=== PATIENT | female | born 2000 | race Two or more races ===

== ENCOUNTER 2025-01-10 11:02 | Outpatient (AMB) | payer OTHER, SELFPAY ==
--- NOTE | 2025-01-10 11:11 | AMB.GYNCLNOT ---
Vital Signs 01/10/25 11:12 Height 1.63 m Height Method Measured Weight 103.022 kg Weight Measurement Method Standing Scale BMI 38.9 BP 127/80 Blood Pressure Source Automatic Cuff Blood Pressure Location Right Upper Arm Position Sitting Respiration 17 Pulse 78 Pulse Source Monitor Temp 97.8 F Temp Source Temporal Artery Scan Pulse Oximetry (%) 98 Oxygen Delivery Method Room Air Allergies/Home Meds Allergies & Medications Allergies No Known Allergies Allergy (Verified 01/10/25 11:12) Medication Reconciliation No Known Home Medications 02/24/24 [History Confirmed 01/10/25] Intake Visit Data Collection New Patient or Established: Established Patient (seen at [facility] within 3 years) Reason for Visit:: REF CONSULT NEXPLANON REMOVAL Consent obtained for Telemed Visit: No Seen by Clinical Staff ONLY (RN/MA): No Hearse Driver Required: No Do You Feel Safe at Home: Yes Authorities Contacted: N/A PCP or OBGYN visit in last 3 months: No Hx Now: No Are you currently on any form of Control: Yes Last menstrual period: 01/02/25 Pain Present Currently: No Pain Scale Used: Sanders-Breaux/Numerical Pain scale:: 0 Smoking Status Smoking Status: Never smoker Critical Care Cns history Critical Care Cns History Menstrual regularity: irregular Flow: normal Monthly: Yes How many days does period last: 8 Age at menarche: 7 Menopausal: No Currently sexually active: Yes 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 1. Little interest or pleasure in doing things: not at all 2. Feeling down, depressed, or hopeless: not at all Total score: 0 PHQ-9 3. Trouble falling or staying asleep, or sleeping too much: Not at all 4. Feeling tired or having little energy: Not at all 5. Poor appetite or overeating: Not at all 6. Feeling bad about yourself - or that you are a failure or have let yourself or your family down: Not at all 7. Trouble concentrating on things, such as reading the newspaper or watching television: Not at all 8. Moving or speaking so slowly that other people could have noticed? - Or the opposite - being so fidgety or restless that you have been moving around a lot more than usual: not at all 9. Thoughts that you would be better off or of hurting yourself in some way: Not at all Total score: 0 If you checked off any problems, how difficult have these problems made it for you to do your work, take care of things at home, or get along with other people?: not difficult at all Source: Developed by Drs. Allen Chambers, Sia Salazar, Juan Rogers and colleagues, with an educational chirag from [employer]. Social History Living Situation History Lives With: Family Housing: House Tobacco History Smoking Status: Never smoker Alcohol History Alcohol Intake: Never Domestic Abuse History Do You Feel Safe at Home: Yes History of Present Illness HPI Narrative 24-year-old 0 para 0 for Nexplanon removal consult. Patient had a Nexplanon for 3 years. She has had no problems with the Nexplanon happy with the method but she like to remove it and see how her hormones are just. Patient is undecided as to what she would like to use for control now.'s complains of frequent menses the last few months. Her last period January 02, 2025. She denies dizziness or any signs of anemia. Denies any coexisting medical problems. She had a lap walter 1 year ago. And she has an occasional drink. Denies any IMPORT/EXPORT FREIGHT FORWARDER complaints. Review of Systems Review of Systems Systems Reviewed: All systems reviewed, normal except as documented Exam Narrative Physical exam: nexplanon site intact, palpated nexplanon capsule General Limitations: no limitations General Appearance: alert, in no apparent distress, comfortable, cooperative, healthy appearing, well developed and well groomed Head Head exam: atraumatic, normocephalic and normal inspection Chest Chest inspection: Present normal inspection and symmetric chest wall rise Resp Respiratory exam: Present normal lung sounds bilaterally Card Cardiovascular exam: Present regular rate, normal rhythm and normal heart sounds Psych Psychiatric exam: Present normal affect and normal mood Office Procedures OB Clinic LOC & Office Proc's Nursing/Assessment Patient Status: Established Patient OB Clinic Nursing Assessment: Medication Reconciliation, Update PMH in EMR and Vital Signs OB Clinic Coordination of Care: Complex Care and Chronic Disease 1-5, Education Complex Pt/Fam, Consent,records obtained, informed consent, Education Simp Pt/Fam and 1 Ins Authorization Established Patient Charge Established Patient Point Assignment: 110 Established Patient Point Charge: EP Level 3 (80-115) Assessment & Plan Diagnosis / Problem List (1) Encounter for surveillance of Nexplanon subdermal contraceptive: Status: Acute Plan review nexplanon side effect and method with patient. discuss nexplanon removal. discuss contraception option including nuva ring. rtc for removl procedure Additional Plan Follow Up: 2 Weeks (nexplanon removal)
[2025-01-10 11:12] VITALS: BP 127/80; PULSE 78; RESP 17; TEMP 36.6; O2SAT 98; BMI 38.9
== END 2025-01-10 11:29 | disposition home or self-care (01) ==
LOC: HODSOBC 11:02
PROVIDERS: PCP Physician Assistant; Referring Provider Physician Assistant; Supervising Provider Advanced Practice Midwife; Visit Provider Advanced Practice Midwife
DX: Z30.46 Encounter for surveillance of implantable subdermal contraceptive (principal)
CPT/HCPCS: 99213; G0463

== ENCOUNTER 2025-02-16 14:17 | Outpatient (AMB) | payer OTHER, SELFPAY ==
--- NOTE | 2025-02-16 14:40 | GYNCLNT_ITS ---
Vital Signs 02/16/25 15:00 Height 1.63 m Height Method Stated Weight 55.395 kg Weight Measurement Method Standing Scale BMI 20.8 BP 127/80 Blood Pressure Source Automatic Cuff Blood Pressure Location Left Upper Arm Position Sitting Respiration 18 Pulse 81 Pulse Source Monitor Temp 97.2 F Temp Source Oral Pulse Oximetry (%) 98 Oxygen Delivery Method Room Air Allergies/Home Meds Allergies & Medications Allergies No Known Allergies Allergy (Verified 02/16/25 15:04) Medication Reconciliation etonogestrel 0.12 mg-ethinyl estradiol 0.015 mg/24 hr vaginal ring (NuvaRing) 1 vag ring vaginal .monthly #3 ea 02/16/25 [Rx] Intake Visit Data Collection New Patient or Established: Established Patient (seen at 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 1. Little interest or pleasure in doing things: not at all 2. Feeling down, depressed, or hopeless: not at all Total score: 0 PHQ-9 3. Trouble falling or staying asleep, or sleeping too much: Not at all 4. Feeling tired or having little energy: Not at all 5. Poor appetite or overeating: Not at all 6. Feeling bad about yourself - or that you are a failure or have let yourself or your family down: Not at all 7. Trouble concentrating on things, such as reading the newspaper or watching television: Not at all 8. Moving or speaking so slowly that other people could have noticed? - Or the opposite - being so fidgety or restless that you have been moving around a lot more than usual: not at all 9. Thoughts that you would be better off or of hurting yourself in some way: Not at all Total score: 0 If you checked off any problems, how difficult have these problems made it for you to do your work, take care of things at home, or get along with other people?: not difficult at all Source: Developed by Drs. Allen Chambers, Sia Salazar, Juan Rogers and colleagues, with an educational chirag from [employer]. Depression screen completed yes Social History Living Situation History Marital Status: Single Lives With: Family Housing: House Tobacco History Smoking Status: Never smoker Second Hand Smoke Exposure: No Alcohol History Alcohol Intake: Never Domestic Abuse History Do You Feel Safe at Home: Yes History of Present Illness HPI Narrative 24-year-old 0 para 0 for Nexplanon removal. Patient had Nexplanon for 3 years. She reports that she does not have regular periods but for the last 3 months she has had prolonged menses off-and-on. She plans to not use any contraception right now. She used the NuvaRing in the past and she like a prescription for that for when she is ready to use it. Denies social habits. Denies surgery. Denies chronic illness. She has no DISPATCH COORDINATOR or interval complaints. Denies allergies Review of Systems Review of Systems Systems Reviewed: All systems reviewed, normal except as documented Exam General Limitations: no limitations General Appearance: alert, in no apparent distress, comfortable, cooperative, healthy appearing, well developed and well groomed Head Head exam: atraumatic, normocephalic and normal inspection ENT ENT exam: Present normal exam, normal oropharynx and mucous membranes moist Neck Neck exam: Present normal inspection, full ROM and trachea midline Abdominal Abdominal exam: Present soft and normal bowel sounds Extremities Extremities exam: Present normal inspection and full ROM Psych Psychiatric exam: Present normal affect and normal mood Office Procedures OB Clinic LOC & Office Proc's Nursing/Assessment Patient Status: Established Patient OB Clinic Nursing Assessment: Medication Reconciliation, Update PMH in EMR and V ital Signs OB Clinic Coordination of Care: Consent,records obtained, informed consent, Education Simp Pt/Fam, Lab and Imaging orders and Staff clarify orders Miscellaneous Interventions: Blood/Urine Collection Established Patient Charge Established Patient Point Assignment: 105 In Clinic Bedside tests Bedside HCG: Yes In Clinic Procedures Removal of Control Implant other NOT IUD: Yes Results Urine HCG Urine HCG Negative Last Edit by Damari Holguin MA on 02/16/25 15:07 Assessment & Plan Diagnosis / Problem List (1) Encounter for surveillance of Nexplanon subdermal contraceptive: Status: Acute (2) Encounter for surveillance of vaginal ring hormonal contraceptive device: Status: Acute (3) Nexplanon removal: Status: Acute Plan Dry x 3 days. Discussed wound care. Consented for Nexplanon removal. I reviewed the procedure and discussed the method. I gave the patient NuvaRing x 6. She will start the method when she is ready. Condoms for 2 weeks and I reviewed next NuvaRing with the patient. Discussed side effects and compliance. And return in 6 months Additional Plan Follow Up: 6 Months (f/u nuva ring) Control Implant/Removal Removal of Contraceptive Device Ambulatory Dept Location: OB Clinic Removal of Contraceptive Device: Yes (Nexplanon removal) Procedure Notes Pre-op diagnosis general: nexplanon removal Post-op diagnosis procedure note: Same Consent obtained: yes-verbal and yes-written Consent comments: Timeout per protocol. 2 cc lidocaine 1% at removal site. I made three fourths cm incision. Small amount of bleeding noted. I expressed the Nexplanon capsule with my finger to out through the incision. And then I grabbed it with a small forcep and remove the Nexplanon intact. Pressure to the wound stop the bleeding. A Band-Aid was placed. Pressure dressing applied. Procedure Notes:: Discussed wound care. Dry for 3 days. And leave the Band-Aid for 2 weeks. I discussed other forms of control.
[2025-02-16 15:00] VITALS: BP 127/80; PULSE 81; RESP 18; TEMP 36.2; O2SAT 98; BMI 20.8
== END 2025-02-16 15:25 | disposition home or self-care (01) ==
LOC: HODSOBC 14:17
PROVIDERS: Supervising Provider Advanced Practice Midwife; Visit Provider Advanced Practice Midwife
DX: Z30.46 Encounter for surveillance of implantable subdermal contraceptive (principal); Z30.015 Encounter for initial prescription of vaginal ring hormonal contraceptive; Z32.02 Encounter for pregnancy test, result negative
CPT/HCPCS: 11982; 81025; 96372; J3490